=== PATIENT | male | born 1945 ===

== ENCOUNTER 2018-07-16 09:42 | Outpatient (CLI) | payer OTHER ==
[~2018-07-16] VITALS: Ht 152.4 cm; Wt 58.1 kg
== END 2018-07-16 10:00 | disposition home or self-care (01) ==
LOC: OFIC 805 09:42
DX: H72.92 Unspecified perforation of tympanic membrane, left ear (principal); H70.12 Chronic mastoiditis, left ear; H90.42 Sensorineural hearing loss, unilateral, left ear, with unrestricted hearing on the contralateral side; K13.0 Diseases of lips

== ENCOUNTER 2018-08-05 09:41 | Outpatient (CLI) | payer OTHER ==
[~2018-08-05] VITALS: Ht 165.1 cm; Wt 57.2 kg
== END 2018-08-05 10:00 | disposition home or self-care (01) ==
LOC: OFIC 805 09:41
DX: K13.70 Unspecified lesions of oral mucosa (principal); H90.42 Sensorineural hearing loss, unilateral, left ear, with unrestricted hearing on the contralateral side; H70.12 Chronic mastoiditis, left ear

== ENCOUNTER 2018-09-23 13:26 | Outpatient (CLI) | payer OTHER ==
[~2018-09-23] VITALS: Ht 152.4 cm; Wt 57.2 kg
== END 2018-09-23 13:50 | disposition home or self-care (01) ==
LOC: OFIC 805 13:26
DX: K13.0 Diseases of lips (principal)